=== PATIENT | female | born 1970 | race Hispanic/Latino ===

== ENCOUNTER 2022-02-27 09:03 | Emergency (ER) | payer OTHER ==
[~2022-02-27] VITALS: Ht 165.1 cm; Wt 86.2 kg
[2022-02-27] MEDS ORDERED: KETOROLAC TROMETHAMINE 60 MG/2 ML VIAL IM NR (09:15)
[2022-02-27 09:35] VITALS: BP 134/88
== END 2022-02-27 09:40 | disposition home or self-care (01) ==
LOC: ER 09:12
DX: L02.31 Cutaneous abscess of buttock (principal)
CPT/HCPCS: 99283; J1885